=== PATIENT | female | born 1990 | race Caucasian/White ===

== ENCOUNTER 2016-12-18 15:08 | Emergency (ER) | payer SELFPAY ==
[~2016-12-18] VITALS: Ht 160 cm; Wt 81.6 kg
[2016-12-18 15:31] LABS: BILIRUBIN,URINE NEGATIVE (NEGATIVE); KETONES,URINE NEGATIVE (NEGATIVE); LEUKOCYTE ESTERASE ,URINE 1+ (NEGATIVE); NITRITE,URINE NEGATIVE (NEGATIVE); PH,URINE 6 (5-9); PROTEIN,URINE NEGATIVE (NEGATIVE); UROBILINOGEN,URINE NORMAL (NORMAL)
[2016-12-18 15:31] LABS: BASOPHILS % (AUTO) 1 % (0-10); EOSINOPHILS # (AUTO) 0.3 10^3/uL (0.0-0.3); EOSINOPHILS % (AUTO) 4 % (0-10); LYMPHOCYTES # (AUTO) 2.4 X 10^3 (1.0-4.0); LYMPHOCYTES % (AUTO) 35 % (12-44); MEAN CORPUSCULAR HEMOGLOBIN 31 PG (25-34); MEAN CORPUSCULAR HGB CONC 36 G/DL (32-36); MEAN CORPUSCULAR VOLUME 85 FL (80-99); MEAN PLATELET VOLUME 10.5 FL (7.4-10.4); MONOCYTES # (AUTO) 0.4 X 10^3 (0.0-1.0); MONOCYTES % (AUTO) 6 % (0-12); NEUTROPHILS # (AUTO) 3.9 X 10^3 (1.8-7.8); NEUTROPHILS % (AUTO) 55 % (42-75); PLATELET COUNT 217 10^3/uL (130-400); RED BLOOD COUNT 4.81 10^6/uL (4.35-5.85); RED CELL DISTRIBUTION WIDTH 12.9 % (10.0-14.5); WHITE BLOOD COUNT 7.1 10^3/uL (4.3-11.0)
[2016-12-18] MEDS ORDERED: GUAN2TAB12 PO (15:37)
[2016-12-18 15:40] LABS: WBC,URINE 0-2 /HPF
--- NOTE | 2016-12-18 15:44 | ED Abdominal Pain ---
General Chief Complaint: Abdominal/GI Problems Stated Complaint: NAUSEA, LEFT SIDED PAIN, DIZZINESS Nursing Triage Note: Pt. advises she has had severe left sided abdominal pain for several days that has become progressively worse. She advises she tried eating today but was unable to keep anything down. Sepsis Screen: No Definite Risk Source of Information: Patient Exam Limitations: No Limitations History of Present Illness Time Seen By Provider: 15:44 Initial Comments 26 yo female patient presents to the ED with c/o LLQ pain for approx 1 wk. Reports evening had a low grade fever. Patient states today she has felt nauseated and unable to keep anything down. States she has vomited x1 today. Denies diarrhea, vaginal bleeding, vaginal dsch, or fever. Timing/Duration: 1 Week, Intermittent Severity/Quality: Aching, Cramping Location: LLQ Radiation: Other (suprapubic) Activities at Onset: None Modifying Factors: Worsens With Eating, Worsens With Palpation Allergies and Home Medications Allergies Coded Allergies: shrimp (Unverified Allergy, Intermediate, 12/18/16) Penicillins (Verified Allergy, Unknown, 08/06/16) Home Medications Guanfacine HCl 2 Mg Tablet, 2 MG PO, (Reported) Hydrocodone/Acetaminophen 1 Each Tablet, 1 EACH PO Q4H PRN for PAIN, #20 Ref 0 Prescribed by: RICHARD PATEL on 12/18/16 1724 Ondansetron 8 Mg Tab.rapdis, 8 MG PO Q6H PRN for NAUSEA/VOMITING, #10 Ref 0 Prescribed by: RICHARD PATEL on 12/18/164 Review of Systems Constitutional: No chills, dizziness (with standing from a sitting or lying position patient reports she becomes dizzy.), No fever, No malaise EENTM: No Symptoms Reported Respiratory: No Symptoms Reported Cardiovascular: No Symptoms Reported Gastrointestinal: See HPI, Denies Abdomen Distended, Abdominal Pain, Denies Blood Streaked Stools, Denies Constipated, Denies Diarrhea, Nausea, Poor Appetite, Poor Fluid Intake, Denies Rectal Bleeding, Vomiting Genitourinary: Denies Burning, Denies Discharge, Denies Frequency, Denies Flank Pain, Denies Hematuria, Pain (suprapubic) Musculoskeletal: No back pain Skin: no symptoms reported Psychiatric/Neurological: No Symptoms Reported All Other Systems Reviewed Negative Unless Noted: Yes (Negative excepted noted.) Past Uabhdxx-Fameex-Tpwnev Hx Patient Social History Alcohol Use: Occasionally Uses Recreational Drug Use: Yes Drug of Choice: THC Type Used: Cigarettes Recent Foreign Travel: No Contact w/Someone Who Travel: No Recent Infectious Disease Expo: No Recent Hopitalizations: No Seasonal Allergies Seasonal Allergies: No Surgeries HX Surgeries: Yes (D&C) Surgeries: Section Respiratory Hx Respiratory Disorders: No Cardiovascular Hx Cardiac Disorders: No Neurological Hx Neurological Disorders: No Reproductive System Hx Reproductive Disorders: No Genitourinary Hx Genitourinary Disorders: No Gastrointestinal Hx Gastrointestinal Disorders: No Musculoskeletal Hx Musculoskeletal Disorders: No Endocrine Hx Endocrine Disorders: No HEENT HX ENT Disorders: No Cancer Hx Cancer: No Psychosocial Hx Psychiatric Problems: Yes Behavioral Health Disorders: Anxiety, Bipolar Integumentary HX Skin/Integumentary Disorder: No Blood Transfusions Hx Blood Disorders: No Reviewed Nursing Assessment Reviewed/Agree w Nursing PMH: Yes Family Medical History Significant Family History: No Pertinent Family Hx Physical Exam Vital Signs VS - Last 72 Hours, by Label 12/18/16 12/18/16 15:28 17:30 Temp 97.6 Pulse 78 86 Resp 14 14 B/P (MAP) 121/80 Pulse Ox 95 98 O2 Delivery Room Air Capillary Refill : Less Than 3 Seconds General Appearance: WD/WN, no apparent distress HEENT: PERRL/EOMI, pharynx normal Neck: supple, normal inspection Respiratory: lungs clear, normal breath sounds, no respiratory distress Cardiovascular: regular rate, rhythm, no murmur Gastrointestinal: normal bowel sounds, soft, no organomegaly, No distended, guarding (suprapubic), No rebound, tenderness (suprapubic) Extremities: no pedal edema, normal capillary refill Back: normal inspection, no CVA tenderness Neurologic/Psychiatric: alert, normal mood/affect, oriented x 3 Skin: normal color, warm/dry Progress/Results/Core Measures Results/Orders Lab Results Laboratory Tests Test 12/18/16 15:20 12/18/16 15:24 Range/Units Urine Color YELLOW Urine Clarity CLEAR Urine pH 6 5-9 Urine Specific [place] 1.010 L 1.016-1.022 Urine Protein NEGATIVE NEGATIVE Urine Glucose (UA) NEGATIVE NEGATIVE Urine Ketones NEGATIVE NEGATIVE Urine Nitrite NEGATIVE NEGATIVE Urine Bilirubin NEGATIVE NEGATIVE Urine Urobilinogen NORMAL NORMAL MG/DL Urine Leukocyte Esterase 1+ H NEGATIVE Urine RBC (Auto) NEGATIVE NEGATIVE Urine RBC NONE /HPF Urine WBC 0-2 /HPF Urine Squamous Epithelial Cells 10-25 H /HPF Urine Crystals NONE /LPF Urine Bacteria TRACE /HPF Urine Casts NONE /LPF Urine Mucus NEGATIVE /LPF Urine Culture Indicated NO Urine Test NEGATIVE NEGATIVE White Blood Count 7.1 4.3-11.0 10^3/uL Red Blood Count 4.81 4.35-5.85 10^6/uL Hemoglobin 14.7 11.5-16.0 G/DL Hematocrit 41 35-52 % Mean Corpuscular Volume 85 80-99 FL Mean Corpuscular Hemoglobin 31 25-34 PG Mean Corpuscular Hemoglobin Concent 36 32-36 G/DL Red Cell Distribution Width 12.9 10.0-14.5 % Platelet Count 217 130-400 10^3/uL Mean Platelet Volume 10.5 H 7.4-10.4 FL Neutrophils (%) (Auto) 55 42-75 % Lymphocytes (%) (Auto) 35 12-44 % Monocytes (%) (Auto) 6 0-12 % Eosinophils (%) (Auto) 4 0-10 % Basophils (%) (Auto) 1 0-10 % Neutrophils # (Auto) 3.9 1.8-7.8 X 10^3 Lymphocytes # (Auto) 2.4 1.0-4.0 X 10^3 Monocytes # (Auto) 0.4 0.0-1.0 X 10^3 Eosinophils # (Auto) 0.3 0.0-0.3 10^3/uL Basophils # (Auto) 0.0 0.0-0.1 10^3/uL Sodium Level 141 135-145 MMOL/L Potassium Level 3.6 3.6-5.0 MMOL/L Chloride Level 110 H 98-107 MMOL/L Carbon Dioxide Level 21 21-32 MMOL/L Anion Gap 10 5-14 MMOL/L Blood Urea Nitrogen 12 7-18 MG/DL Creatinine 0.81 0.60-1.30 MG/DL Estimat Glomerular Filtration Rate > 60 BUN/Creatinine Ratio 15 Glucose Level 93 70-105 MG/DL Calcium Level 9.6 8.5-10.1 MG/DL Total Bilirubin 0.5 0.1-1.0 MG/DL Aspartate Amino Transf (AST/SGOT) 14 5-34 U/L Alanine Aminotransferase (ALT/SGPT) 18 0-55 U/L Alkaline Phosphatase 69 40-136 U/L Total Protein 7.2 6.4-8.2 G/DL Albumin 4.5 3.2-4.5 G/DL Lipase 29 8-78 U/L My Orders Orders - RICHARD PATEL Cbc With Automated Diff (12/18/16 15:24) Comprehensive Metabolic Panel (12/18/16 15:24) Lipase (12/18/16 15:24) Ua Culture If Indicated (12/18/16 15:24) Saline Lock/Iv-Start (12/18/16 15:24) Ns Iv 1000 Ml (Sodium Chloride 0.9%) (12/18/16 16:05) Ondansetron Injection (Zofran Injectio (12/18/16 16:15) Ketorolac Injection (Toradol Injection) (12/18/16 16:05) Ct Abdomen/Pelvis W (12/18/16 16:05) Iohexol Injection (Omnipaque 350 Mg/Ml 1 (12/18/16 16:15) Ns (Ivpb) (Sodium Chloride 0.9% Ivpb Bag (12/18/16 16:15) Hcg,Qualitative Urine (12/18/16 16:11) Medications Given in ED Current Medications Medications Dose Ordered Sig/Katarzyna Route Start Time Stop Time Status Last Admin Dose Admin Iohexol 100 ml ONCE ONCE IV 12/18/16 16:15 12/18/16 16:16 DC 12/18/16 16:30 100 ML Ondansetron HCl 4 mg ONCE ONCE IVP 12/18/16 16:15 12/18/16 16:16 DC 12/18/16 16:14 4 MG Sodium Chloride 100 ml ONCE ONCE IV 12/18/16 16:15 12/18/16 16:16 DC 12/18/16 16:30 80 ML Sodium Chloride 1,000 ml @ 0 mls/hr Q0M ONCE IV 12/18/16 16:05 12/18/16 16:13 DC 12/18/16 16:14 0 MLS/HR Vital Signs/I&O Vital Sign - Last 12Hours 12/18/16 12/18/16 15:28 17:30 Temp 97.6 Pulse 78 86 Resp 14 14 B/P (MAP) 121/80 Pulse Ox 95 98 O2 Delivery Room Air Blood Pressure Mean: 94 Diagnostic Imaging Diagonstic Imaging: CT Plain Films/CT/US/NM/MRI: abdomen, pelvis Comments FINDINGS: Lung bases are clear. Liver appears normal. Gallbladder is contracted. Bile ducts are not dilated. Pancreas and spleen are normal. The adrenal glands are normal. The kidneys appear normal. There is normal enhancement of the aorta and abdominal vessels following IV contrast. Normal enhancement of the kidneys. Stomach and small bowel are not distended. The colon shows normal stool and gas pattern with no evidence of constipation. No evidence of diverticulitis. The appendix is not specifically identified though no appendicoliths or obvious dilated structures are seen in the right lower quadrant. Uterus appears normal. Ovaries are not enlarged. There is a hemorrhagic cyst which does enhance in the left ovary, measuring approximately 2 cm. There is a small amount of free fluid in the cul-de-sac. IMPRESSION: 1. Findings are consistent with ruptured hemorrhagic cyst in the left ovary with small amount of free fluid in the pelvis. 2. No evidence of diverticulitis. Kidneys appear normal. Dictated by: Dictated on workstation # [id number] Reviewed: Reviewed by Me (radiology report reviewed by me) Departure Communication Progress Notes lying vitals BP 123/74 mmHg P59 standing BP 113/79 P 85. All laboratory and diagnostic findings discussed with the patient. Patient reports feeling much better with IV fluids and medications. Denies current dizziness. Plan for discharge to home. All return precautions were discussed with the patient as described in the discharge instructions of this report. Patient voices understanding and agrees with treatment plan. Impression Impression: Primary Impression: Hemorrhagic cyst of ovary Disposition: HOME, SELF-CARE Condition: Improved Departure-Patient Inst. Decision time for Depature: 17:21 Referrals: NO,LOCAL PHYSICIAN (PCP/Family) Primary Care Physician Patient Instructions: Ovarian Cyst (DC) Add. Discharge Instructions: All discharge instructions reviewed with patient and/or family. Voiced understanding. Medications as instructed. Ibuprofen 800 mg by mouth every 8 hours as needed for pain. Drink plenty of fluids. Follow-up with your family practitioner for recheck as an outpatient, call for appointment time tomorrow morning. Return to the emergency department immediately for worsened pain, dizziness, headache, fever, vomiting, decreased urination, inability to urinate , or any other concerns. Scripts Ondansetron (Ondansetron Odt) 8 Mg Tab.rapdis 8 MG PO Q6H Y for NAUSEA/VOMITING, #10 TAB 0 Refills Prov: RIHCARD PATEL 12/18/16 Hydrocodone/Acetaminophen (Hydrocodon -Acetaminophen 5-325) 1 Each Tablet 1 EACH PO Q4H Y for PAIN, #20 TAB 0 Refills Prov: RICHARD PATEL 12/18/16 Work/School Note: Local Medical Staff Listing, Work Release Form Date Seen in the Emergency Department: Dec 18, 2016 Return to Work: Dec 20, 2016 RICHARD PATEL Dec 18, 2016 15:44
[2016-12-18 15:52] LABS: ALANINE AMINOTRANSFERASE 18 U/L (0-55); ALBUMIN 4.5 G/DL (3.2-4.5); ANION GAP 10 MMOL/L (5-14); ASPARTATE AMINO TRANSFERASE 14 U/L (5-34); BILIRUBIN,TOTAL 0.5 MG/DL (0.1-1.0); BLOOD UREA NITROGEN 12 MG/DL (7-18); BUN/CREATININE RATIO 15; CALCIUM 9.6 MG/DL (8.5-10.1); CARBON DIOXIDE 21 MMOL/L (21-32); CHLORIDE 110 MMOL/L (98-107); CREATININE SERUM 0.81 MG/DL (0.60-1.30); GFR ESTIMATED > 60; GLUCOSE 93 MG/DL (70-105); LIPASE 29 U/L (8-78); POTASSIUM 3.6 MMOL/L (3.6-5.0); SODIUM 141 MMOL/L (135-145); TOTAL PROTEIN 7.2 G/DL (6.4-8.2)
[2016-12-18] MEDS ORDERED: NS IV 1000 ML 1,000 ML IV ONE (16:05)
[2016-12-18] MEDS ORDERED: KETOROLAC 30 MG/ML VIAL IVP STA (16:05)
[2016-12-18] MEDS ORDERED: IOHEXOL 350 MG/ML 100 ML (OMNIPAQUE 350) VIAL IV ONE (16:15)
[2016-12-18] MEDS ORDERED: NS 100 ML (IVPB) BAG IV ONE (16:15)
[2016-12-18] MEDS ORDERED: ONDANSETRON 4 MG/2 ML (SDV) Z0FRAN IVP ONE (16:15)
--- NOTE | 2016-12-18 16:52 | Diagnostic Imaging Report ---
PROCEDURE: CT abdomen and pelvis with contrast. TECHNIQUE: Multiple contiguous axial images were obtained through the abdomen and pelvis after administration of intravenous contrast. INDICATION: Left-sided abdominal pain with nausea x 1 week. FINDINGS: Lung bases are clear. Liver appears normal. Gallbladder is contracted. Bile ducts are not dilated. Pancreas and spleen are normal. The adrenal glands are normal. The kidneys appear normal. There is normal enhancement of the aorta and abdominal vessels following IV contrast. Normal enhancement of the kidneys. Stomach and small bowel are not distended. The colon shows normal stool and gas pattern with no evidence of constipation. No evidence of diverticulitis. The appendix is not specifically identified though no appendicoliths or obvious dilated structures are seen in the right lower quadrant. Uterus appears normal. Ovaries are not enlarged. There is a hemorrhagic cyst which does enhance in the left ovary, measuring approximately 2 cm. There is a small amount of free fluid in the cul-de-sac. IMPRESSION: 1. Findings are consistent with ruptured hemorrhagic cyst in the left ovary with small amount of free fluid in the pelvis. 2. No evidence of diverticulitis. Kidneys appear normal. Dictated by: Dictated on workstation # [id number]
[2016-12-18] MEDS ORDERED: ONDA8TAB13 PO (17:24)
[2016-12-18] MEDS ORDERED: HYDR-3812 PO (17:24)
[2016-12-18 17:30] VITALS: BP 120/77
== END 2016-12-18 17:31 | disposition home or self-care (01) ==
LOC: EDUNIT# 15:08 → ER 15:11
DX: N83.202 Unspecified ovarian cyst, left side (principal)
CPT/HCPCS: 36415; 74177; 80053; 81000; 83690; 84703; 85025; 96374; 96375

== ENCOUNTER 2017-01-06 15:26 | Emergency (ER) | payer SELFPAY ==
[~2017-01-06] VITALS: Ht 160 cm; Wt 52.2 kg
[~2017-01-06 15:26] MED LIST: GUAN2TAB12 PO; HYDR-3812 PO; ONDA8TAB13 PO
--- NOTE | 2017-01-06 16:16 | ED Integumentary General ---
General Chief Complaint: Bite-Animal/Human/Insect Stated Complaint: POSSIBLE INSECT BITE RT ARM Nursing Triage Note: AMB TO ROOM RED SHAKA TO R FA. Source: patient Exam Limitations: no limitations History of Present Illness Time seen by provider: 16:10 Initial Comments The patient is a 26-year-old white female who presents with what appears to be a bite on the ulnar aspect of her right arm at the elbow. She believes that this began yesterday. It has enlarged and is now itchy. There is another smaller more indurated red area on the dorsal aspect of the forearm adjacent to the first lesion and a third of similar bright red indurated character at the MP joint of the second finger. [place] but is not particularly exposed to grass weeds or brush. Timing/Duration: yesterday Location: extremities (right arm) Possible Cause: insect sting Allergies and Home Medications Allergies Coded Allergies: shrimp (Unverified Allergy, Intermediate, 12/18/16) Penicillins (Verified Allergy, Unknown, 08/06/16) Home Medications Guanfacine HCl 2 Mg Tablet, 2 MG PO, (Reported) Hydrocodone/Acetaminophen 1 Each Tablet, 1 EACH PO Q4H PRN for PAIN, #20 Ref 0 Prescribed by: RICHARD PATEL on 12/18/16 1724 Ondansetron 8 Mg Tab.rapdis, 8 MG PO Q6H PRN for NAUSEA/VOMITING, #10 Ref 0 Prescribed by: RICHARD PATEL on 12/18/16 1724 Constitutional: see HPI EENTM: no symptoms reported Respiratory: no symptoms reported Cardiovascular: no symptoms reported Gastrointestinal: no symptoms reported Genitourinary: no symptoms reported Skin: see HPI Psychiatric/Neurological: No Symptoms Reported Endocrine: No Symptoms Reported Past Jbirsoj-Rkidew-Agdfew Hx Patient Social History Alcohol Use: Occasionally Uses Recreational Drug Use: Yes Drug of Choice: THC Smoking Status: Never a Smoker Type Used: Cigarettes Recent Foreign Travel: No Contact w/Someone Who Travel: No Recent Infectious Disease Expo: No Recent Hopitalizations: No Seasonal Allergies Seasonal Allergies: No Surgeries HX Surgeries: Yes (D&C) Surgeries: Section Respiratory Hx Respiratory Disorders: No Cardiovascular Hx Cardiac Disorders: No Neurological Hx Neurological Disorders: No Reproductive System Hx Reproductive Disorders: No Genitourinary Hx Genitourinary Disorders: No Gastrointestinal Hx Gastrointestinal Disorders: No Musculoskeletal Hx Musculoskeletal Disorders: No Endocrine Hx Endocrine Disorders: No HEENT HX ENT Disorders: No Cancer Hx Cancer: No Psychosocial Hx Psychiatric Problems: Yes Behavioral Health Disorders: Anxiety, Bipolar Integumentary HX Skin/Integumentary Disorder: No Blood Transfusions Hx Blood Disorders: No Family Medical History Significant Family History: No Pertinent Family Hx Physical Exam Vital Signs Vital Sign - Last 12Hours 01/06/17 15:31 Temp 98.3 Pulse 88 Resp 18 B/P (MAP) 110/65 Pulse Ox 97 O2 Delivery Room Air Capillary Refill : Less Than 3 Seconds General Appearance: WD/WN, no apparent distress HEENT: normal ENT inspection Neck: full range of motion Cardiovascular: normal peripheral pulses, regular rate, rhythm, no edema, no gallop, no JVD, no murmur Respiratory: chest non-tender, lungs clear, normal breath sounds, no respiratory distress, no accessory muscle use Gastrointestinal: normal bowel sounds, non tender, soft, no organomegaly, no pulsatile mass Back: normal inspection Extremities: normal range of motion Comments There is an erythematous 5 cm symmetric round lesion on the ulnar aspect of the forearm at the elbow. In the center is a small papule consistent with an insect bite or sting. There is a small raised red indurated lesion adjacent to this and more on the dorsal aspect of the of the forearm. A similar lesion is noted on the dorsal aspect of the hand near the second MP joint Progress/Results/Core Measures Results/Orders Vital Signs/I&O Vital Sign - Last 12Hours 01/06/17 15:31 Temp 98.3 Pulse 88 Resp 18 B/P (MAP) 110/65 Pulse Ox 97 O2 Delivery Room Air Blood Pressure Mean: 80 Departure Impression Impression: Primary Impression: insect bite Disposition: 01 HOME, SELF-CARE Departure-Patient Inst. Decision time for Depature: 16:16 Referrals: [facility] (PCP/Family) Primary Care Physician Patient Instructions: Insect Bites and Stings (DC) Add. Discharge Instructions: All discharge instructions reviewed with patient and/or family. Voiced understanding. Acquire Benadryl 25 mg his at up to every 4 hours as needed for itching. Apply Cortizone 10 which is available [id number]-sya-[id number] directly to the lesions every 4 -6 hours when necessary JEREMI DRISCOLL MD Jan 06, 2017 16:16
[2017-01-06 16:28] VITALS: BP 0/0
== END 2017-01-06 16:28 | disposition home or self-care (01) ==
LOC: EDUNIT# 15:26 → ER 15:27
DX: S50.361A Insect bite (nonvenomous) of right elbow, initial encounter (principal); S50.861A Insect bite (nonvenomous) of right forearm, initial encounter; W57.XXXA Bitten or stung by nonvenomous insect and other nonvenomous arthropods, initial encounter; Y99.8 Other external cause status
CPT/HCPCS: 99283

== ENCOUNTER 2017-04-14 17:35 | Emergency (ER) | payer SELFPAY ==
[~2017-04-14] VITALS: Ht 160 cm; Wt 54.9 kg
--- NOTE | 2017-04-14 18:13 | ED Psychosocial ---
General Chief Complaint: Psych/Social Disorder Stated Complaint: SUICIDAL Nursing Triage Note: PT WAS SENT HERE FROM [facility] WITH THOUGHTS OF KILLING HERSELF. PT HAS A HISTORY OF SELF HARM AND IS SCARED TO BE ALONE. Source: patient Exam Limitations: no limitations History of Present Illness Time seen by provider: 18:10 Initial Comments To ER with reports of suicidal thoughts. This began about a week ago. She does not recall any one particular stressor that led to this. She states that she was started on Lamictal for bipolar depression with anxiety on 25 March. She is not on any other medications. She does binge drink on the weekends and occasionally uses marijuana to help her relax. She does not have a current plan for suicide but states that she does not trust herself to be safe at home. She does have a history of suicide attempt last year about this time while she was living in [place]. She drank a liter of vodka and took 40 Tylenol. She has had no attempts since then. She does have a boyfriend here in [place] states that that relationship is not a stable relationship and may be a factor in her worsening depression. She would prefer inpatient treatment. Timing/Duration: constant Associated Symptoms: suicidal ideation Allergies and Home Medications Allergies Coded Allergies: shrimp (Unverified Allergy, Intermediate, 12/18/16) Penicillins (Verified Allergy, Unknown, 08/06/16) Home Medications Guanfacine HCl 2 Mg Tablet, 2 MG PO, (Reported) Hydrocodone/Acetaminophen 1 Each Tablet, 1 EACH PO Q4H PRN for PAIN, #20 Ref 0 Prescribed by: RICHARD PATEL on 12/18/161723 Ondansetron 8 Mg Tab.rapdis, 8 MG PO Q6H PRN for NAUSEA/VOMITING, #10 Ref 0 Prescribed by: RICHARD PATEL on 12/18/16 1724 Constitutional: see HPI EENTM: see HPI Respiratory: no symptoms reported Cardiovascular: no symptoms reported Genitourinary: no symptoms reported Musculoskeletal: no symptoms reported Skin: no symptoms reported Psychiatric/Neurological: See HPI, Anxiety, Depressed, Emotional Problems Past Shclhbi-Tkktvr-Mmvwih Hx Patient Social History Drug of Choice: THC Type Used: Cigarettes Recent Foreign Travel: No Contact w/Someone Who Travel: No Recent Infectious Disease Expo: No Recent Hopitalizations: No Seasonal Allergies Seasonal Allergies: No Surgeries HX Surgeries: Yes (D&C) Surgeries: Section Respiratory Hx Respiratory Disorders: No Cardiovascular Hx Cardiac Disorders: No Neurological Hx Neurological Disorders: No Reproductive System : No Hx Reproductive Disorders: No Genitourinary Hx Genitourinary Disorders: No Gastrointestinal Hx Gastrointestinal Disorders: No Musculoskeletal Hx Musculoskeletal Disorders: No Endocrine Hx Endocrine Disorders: No HEENT HX ENT Disorders: No Cancer Hx Cancer: No Psychosocial Hx Psychiatric Problems: Yes Behavioral Health Disorders: Anxiety, Bipolar Integumentary HX Skin/Integumentary Disorder: No Blood Transfusions Hx Blood Disorders: No Family Medical History Significant Family History: No Pertinent Family Hx Physical Exam Vital Signs Vital Sign - Last 12Hours 04/14/17 17:44 Temp 98.7 Pulse 77 Resp 18 B/P (MAP) 111/61 Pulse Ox 96 O2 Delivery Room Air Capillary Refill : Less Than 3 Seconds General Appearance: WD/WN, no apparent distress HEENT: PERRL/EOMI, normal ENT inspection Respiratory: no respiratory distress, no accessory muscle use Cardiovascular: regular rate, rhythm, no murmur Gastrointestinal: normal bowel sounds, non tender, soft Extremities: normal range of motion, non-tender Neurologic/Psychiatric: alert, normal mood/affect, oriented x 3 Appearance/Memory: appropriate appearance, appropriate insight, neat Behavior/Eye Contact: cooperative, good eye contact, avoids eye contact, other (very pleasant but avoids eye contact) Thoughts/Hallucinations: normal thought pattern, no apparent hallucination Skin: normal color, warm/dry Progress/Results/Core Measures Results/Orders Lab Results Laboratory Tests Test 04/14/17 18:31 04/14/17 18:39 Range/Units White Blood Count 7.9 4.3-11.0 10^3/uL Red Blood Count 4.66 4.35-5.85 10^6/uL Hemoglobin 14.3 11.5-16.0 G/DL Hematocrit 41 35-52 % Mean Corpuscular Volume 87 80-99 FL Mean Corpuscular Hemoglobin 31 25-34 PG Mean Corpuscular Hemoglobin Concent 35 32-36 G/DL Red Cell Distribution Width 12.7 10.0-14.5 % Platelet Count 194 130-400 10^3/uL Mean Platelet Volume 10.4 7.4-10.4 FL Neutrophils (%) (Auto) 64 42-75 % Lymphocytes (%) (Auto) 27 12-44 % Monocytes (%) (Auto) 5 0-12 % Eosinophils (%) (Auto) 3 0-10 % Basophils (%) (Auto) 1 0-10 % Neutrophils # (Auto) 5.1 1.8-7.8 X 10^3 Lymphocytes # (Auto) 2.1 1.0-4.0 X 10^3 Monocytes # (Auto) 0.4 0.0-1.0 X 10^3 Eosinophils # (Auto) 0.3 0.0-0.3 10^3/uL Basophils # (Auto) 0.0 0.0-0.1 10^3/uL Sodium Level 139 135-145 MMOL/L Potassium Level 3.8 3.6-5.0 MMOL/L Chloride Level 110 H 98-107 MMOL/L Carbon Dioxide Level 20 L 21-32 MMOL/L Anion Gap 9 5-14 MMOL/L Blood Urea Nitrogen 12 7-18 MG/DL Creatinine 0.78 0.60-1.30 MG/DL Estimat Glomerular Filtration Rate > 60 BUN/Creatinine Ratio 15 Glucose Level 99 70-105 MG/DL Calcium Level 9.7 8.5-10.1 MG/DL Total Bilirubin 0.7 0.1-1.0 MG/DL Aspartate Amino Transf (AST/SGOT) 9 5-34 U/L Alanine Aminotransferase (ALT/SGPT) 11 0-55 U/L Alkaline Phosphatase 56 40-136 U/L Total Protein 7.2 6.4-8.2 GM/DL Albumin 4.4 3.2-4.5 GM/DL Serum Test, Qualitative NEGATIVE NEGATIVE Salicylates Level < 5.0 L 5.0-20.0 MG/DL Acetaminophen Level < 10 L 10-30 UG/ML Serum Alcohol < 10 <10 MG/DL Urine Opiates Screen NEGATIVE NEGATIVE Urine Oxycodone Screen NEGATIVE NEGATIVE Urine Methadone Screen NEGATIVE NEGATIVE Urine Propoxyphene Screen NEGATIVE NEGATIVE Urine Barbiturates Screen NEGATIVE NEGATIVE Ur Tricyclic Antidepressants Screen NEGATIVE NEGATIVE Urine Phencyclidine Screen NEGATIVE NEGATIVE Urine Amphetamines Screen NEGATIVE NEGATIVE Urine Methamphetamines Screen NEGATIVE NEGATIVE Urine Benzodiazepines Screen NEGATIVE NEGATIVE Urine Cocaine Screen NEGATIVE NEGATIVE Urine Cannabinoids Screen NEGATIVE NEGATIVE My Orders Orders - SANDRA ZEPEDA INFORMATION RESOURCE CONSULTANT Cbc With Automated Diff (04/14/17 17:50) Comprehensive Metabolic Panel (04/14/17 17:50) Urine Bedside (04/14/17 17:50) Drug Screen Stat (Urine) (04/14/17 17:50) Salicylate (04/14/17 17:50) Acetaminophen (04/14/17 17:50) Alcohol (04/14/17 17:50) Hcg,Qualitative Serum (04/14/17 17:50) Ekg Tracing (04/14/17 17:50) Vital Signs/I&O Vital Sign - Last 12Hours 04/14/17 17:44 Temp 98.7 Pulse 77 Resp 18 B/P (MAP) 111/61 Pulse Ox 96 O2 Delivery Room Air Blood Pressure Mean: 78 Departure Communication Progress Notes 1939-I've attempted to find inpatient psychiatric placement for the patient. [facility] in [place] does not have any beds. [facility] in [facility] does not have any beds. [facility] in [facility] does not have any beds. [facility] in [place] does not have any beds. Dr. Goodman at [facility] accepted the patient. Tracing all secure psych transport will be here Impression Impression: Primary Impression: Depression Disposition: 01 HOME, SELF-CARE Condition: Stable Departure-Patient Inst. Referrals: [facility] [place]) Primary Care Physician SANDRA ZEPEDA APRN Apr 14, 2017 18:13
[2017-04-14 18:47] LABS: BASOPHILS % (AUTO) 1 % (0-10); EOSINOPHILS # (AUTO) 0.3 10^3/uL (0.0-0.3); EOSINOPHILS % (AUTO) 3 % (0-10); LYMPHOCYTES # (AUTO) 2.1 X 10^3 (1.0-4.0); LYMPHOCYTES % (AUTO) 27 % (12-44); MEAN CORPUSCULAR HEMOGLOBIN 31 PG (25-34); MEAN CORPUSCULAR HGB CONC 35 G/DL (32-36); MEAN CORPUSCULAR VOLUME 87 FL (80-99); MEAN PLATELET VOLUME 10.4 FL (7.4-10.4); MONOCYTES # (AUTO) 0.4 X 10^3 (0.0-1.0); MONOCYTES % (AUTO) 5 % (0-12); NEUTROPHILS # (AUTO) 5.1 X 10^3 (1.8-7.8); NEUTROPHILS % (AUTO) 64 % (42-75); PLATELET COUNT 194 10^3/uL (130-400); RED BLOOD COUNT 4.66 10^6/uL (4.35-5.85); RED CELL DISTRIBUTION WIDTH 12.7 % (10.0-14.5); WHITE BLOOD COUNT 7.9 10^3/uL (4.3-11.0)
[2017-04-14 19:00] LABS: ALANINE AMINOTRANSFERASE 11 U/L (0-55); ALBUMIN 4.4 GM/DL (3.2-4.5); ALCOHOL < 10 MG/DL (<10); ANION GAP 9 MMOL/L (5-14); ASPARTATE AMINO TRANSFERASE 9 U/L (5-34); BILIRUBIN,TOTAL 0.7 MG/DL (0.1-1.0); BLOOD UREA NITROGEN 12 MG/DL (7-18); BUN/CREATININE RATIO 15; CALCIUM 9.7 MG/DL (8.5-10.1); CARBON DIOXIDE 20 MMOL/L (21-32); CHLORIDE 110 MMOL/L (98-107); CREATININE SERUM 0.78 MG/DL (0.60-1.30); GFR ESTIMATED > 60; GLUCOSE 99 MG/DL (70-105); POTASSIUM 3.8 MMOL/L (3.6-5.0); SALICYLATE < 5.0 MG/DL (5.0-20.0); SODIUM 139 MMOL/L (135-145); TOTAL PROTEIN 7.2 GM/DL (6.4-8.2)
[2017-04-14 19:03] LABS: ACETAMINOPHEN < 10 UG/ML (10-30)
[2017-04-14 21:28] VITALS: BP 103/59
== END 2017-04-14 21:28 ==
LOC: EDUNIT# 17:35 → ER 17:37
DX: F32.9 Major depressive disorder, single episode, unspecified (principal); F41.9 Anxiety disorder, unspecified
CPT/HCPCS: 36415; 80053; 80306; 80320; 80329; 84703; 85025; 93005

== ENCOUNTER 2017-07-15 21:32 | Emergency (ER) | payer SELFPAY ==
[~2017-07-15] VITALS: Ht 160 cm; Wt 68.0 kg
[2017-07-15 22:20] LABS: BILIRUBIN,URINE NEGATIVE (NEGATIVE); KETONES,URINE NEGATIVE (NEGATIVE); LEUKOCYTE ESTERASE ,URINE NEGATIVE (NEGATIVE); NITRITE,URINE NEGATIVE (NEGATIVE); PH,URINE 6 (5-9); PROTEIN,URINE NEGATIVE (NEGATIVE); UROBILINOGEN,URINE NORMAL (NORMAL)
[2017-07-15 22:23] LABS: BASOPHILS % (AUTO) 0 % (0-10); EOSINOPHILS # (AUTO) 0.2 10^3/uL (0.0-0.3); EOSINOPHILS % (AUTO) 3 % (0-10); LYMPHOCYTES # (AUTO) 1.9 X 10^3 (1.0-4.0); LYMPHOCYTES % (AUTO) 39 % (12-44); MEAN CORPUSCULAR HEMOGLOBIN 30 PG (25-34); MEAN CORPUSCULAR HGB CONC 35 G/DL (32-36); MEAN CORPUSCULAR VOLUME 85 FL (80-99); MONOCYTES # (AUTO) 0.3 X 10^3 (0.0-1.0); MONOCYTES % (AUTO) 6 % (0-12); NEUTROPHILS # (AUTO) 2.4 X 10^3 (1.8-7.8); NEUTROPHILS % (AUTO) 51 % (42-75); PLATELET COUNT 223 10^3/uL (130-400); RED BLOOD COUNT 4.53 10^6/uL (4.35-5.85); RED CELL DISTRIBUTION WIDTH 12.6 % (10.0-14.5); WHITE BLOOD COUNT 4.7 10^3/uL (4.3-11.0)
[2017-07-15 22:28] LABS: SQUAMOUS EPITHELIAL CELL,UR 0-2 /HPF
[2017-07-15 22:44] LABS: ALANINE AMINOTRANSFERASE 15 U/L (0-55); ALCOHOL 60 MG/DL (<10); ANION GAP 10 MMOL/L (5-14); ASPARTATE AMINO TRANSFERASE 11 U/L (5-34); BILIRUBIN,TOTAL 0.3 MG/DL (0.1-1.0); BLOOD UREA NITROGEN 8 MG/DL (7-18); BUN/CREATININE RATIO 9; CALCIUM 9.2 MG/DL (8.5-10.1); CARBON DIOXIDE 20 MMOL/L (21-32); CHLORIDE 111 MMOL/L (98-107); CREATININE SERUM 0.85 MG/DL (0.60-1.30); GFR ESTIMATED > 60; GLUCOSE 94 MG/DL (70-105); POTASSIUM 3.3 MMOL/L (3.6-5.0); SALICYLATE < 5.0 MG/DL (5.0-20.0); SODIUM 141 MMOL/L (135-145); TOTAL PROTEIN 6.9 GM/DL (6.4-8.2)
[2017-07-15 23:12] LABS: ACETAMINOPHEN < 10 UG/ML (10-30)
--- NOTE | 2017-07-15 23:49 | ED General ---
General Chief Complaint: Psych/Social Disorder Stated Complaint: SUICIDAL Nursing Triage Note: patient reports has been drinking and got into argument with boyfriend. patient reports trying to harm herself by cutting her RFA. Nursing Sepsis Screen: No Definite Risk Source of Information: Patient History of Present Illness Time Seen by Provider: 22:00 Initial Comments PT ARRIVES VIA EMS FROM HOME PT STATES SHE IS SUICIDAL AND TRIED TO HARM HERSELF BY CUTTING HER RIGHT FOREARM WITH A RAZOR JUST PRIOR TO ARRIVAL PT STATES SHE GOT INTO AN ARGUMENT WITH HER BOYFRIEND--STATES "I TRIED TO TELL HIM SOMETHING AND HE DIDN'T BELIEVE ME" SO SHE TRIED TO CUT HER ARM, AND WAS WITNESSED BY BOYFRIEND, WHO CALLED EMS PT STATES SHE HAS HAD 25 OZ OF BEER PLUS 4 "SHOTS" ( "MINI BOTTLES") OF RUM AND VODKA--HAS NOT HAD ANY ALCOHOL FOR OVER A MONTH PT STATES SHE AND BOYFRIEND MOVED HERE 05/2016 FROM [place], BUT HAVE BEEN BACK AND FORTH BETWEEN HERE AN [place] EVERY 1-2 MONTHS SINCE THEN--JUST GOT BACK AGAIN FROM THERE ON Tuesday07/10/17, AFTER BEING THERE SINCE PT HAS HISTORY OF OVERDOSE ON TYLENOL + VODKA + CUT HERSELF WHILE IN [place] LAST 2015 PT DID THE SAME THIS PAST SUMMER----AND WAS HOSPITALIZED AT [facility] PT HAS NOT FOLLOWED UP WITH MENTAL HEALTH SINCE THAT TIME, EXCEPT POSSIBLY ONE VISIT RIGHT AFTER SHE WAS DISMISSED PT SELF DC'D ALL OF HER MEDICATIONS IN APRIL--WAS ON LITHIUM AND STRATTERA PT STATES SHE HAD TETANUS VACCINATION IN 2015 IN [place] PSYCH--[facility] PT STATES SHE DOES NOT REALLY SEE ANY ONE FOR PRIMARY CARE Allergies and Home Medications Allergies Coded Allergies: shrimp (Unverified Allergy, Intermediate, 12/18/16) Penicillins (Verified Allergy, Unknown, 08/06/16) Home Medications Guanfacine HCl 2 Mg Tablet, 2 MG PO, (Reported) Hydrocodone/Acetaminophen 1 Each Tablet, 1 EACH PO Q4H PRN for PAIN, #20 Ref 0 Prescribed by: RICHARD PATEL on 12/18/161723 Ondansetron 8 Mg Tab.rapdis, 8 MG PO Q6H PRN for NAUSEA/VOMITING, #10 Ref 0 Prescribed by: RICHARD PATEL on 3/25/17 1724 Constitutional: no symptoms reported EENTM: no symptoms reported Respiratory: no symptoms reported Cardiovascular: no symptoms reported Gastrointestinal: no symptoms reported Genitourinary: no symptoms reported : No LMP: Jul 13, 2017 (S/P BTL) Musculoskeletal: no symptoms reported Skin: see HPI Psychiatric/Neurological: See HPI, Depressed, Emotional Problems Hematologic/Lymphatic: No Symptoms Reported Immunological/Allergic: no symptoms reported Past Xnfufck-Bvqbuw-Pxlhov Hx Patient Social History Alcohol Use: Occasionally Uses (HISTORY OF ABUSE/ HEAVY USE, NOW ONLY "OCCASIONALLY" DRINKS, PER PT ON 07/15/17) Recreational Drug Use: Yes Drug of Choice: THC Smoking Status: Never a Smoker Recent Foreign Travel: No Contact w/Someone Who Travel: No Recent Infectious Disease Expo: No Recent Hopitalizations: No Physical Abuse: No Sexual Abuse: No Immunizations Up To Date Tetanus Booster (TDap): Less than 5yrs (2016) Seasonal Allergies Seasonal Allergies: No Surgeries History of Surgeries: Yes (D&C X 2 FOR MISCARRIAGE; X 3) Surgeries: Section, Tubal Ligation Respiratory History of Respiratory Disorde: No Cardiovascular History of Cardiac Disorders: No Neurological History of Neurological Disord: No Reproductive System : No Hx Reproductive Disorders: No Female Reproductive Disorders: Denies Genitourinary History of Genitourinary Disor: No Gastrointestinal History of Gastrointestinal Di: No Musculoskeletal History of Musculoskeletal Dis: No Endocrine History of Endocrine Disorders: No HEENT History of HEENT Disorders: No Cancer History of Cancer: No Psychosocial History of Psychiatric Problem: Yes (OVERDOSED WITH PILLS AND ALCOHOL, CUT FOREARMS) Behavioral Health Disorders: Suicide Attempts, Bipolar, Depression Suicide Risk Score: 0 Integumentary History of Skin or Integumenta: No Blood Transfusions History of Blood Disorders: No Family Medical History Significant Family History: No Pertinent Family Hx Physical Exam Vital Signs Vital Sign - Last 12Hours 07/15/17 21:42 Temp 98.4 Pulse 84 Resp 18 B/P (MAP) 133/82 Pulse Ox 97 Capillary Refill : Less Than 3 Seconds General Appearance: No Apparent Distress, WD/WN, Other (HAIR CUT VERY SHORT; VERY FLAT AFFECT; DOES NOT MAKE EYE CONTACT) Neck: Normal Inspection Respiratory: Normal Breath Sounds Cardiovascular: Regular Rate, Rhythm, No Murmur Gastrointestinal: Soft Back: Normal Inspection Extremity: Normal Inspection Neurologic/Psychiatric: Alert, Oriented x3, No Motor/Sensory Deficits, hydraulic mechanic II- XII Norm as Tested, Depressed Affect, Other (FLAT) Skin: Normal Color, Warm/Dry, Other (SUPERFICIAL / PARALLEL WIDE ABRASIONS TO ANTERIOR ASPECT OF RIGHT FOREARM--NO BLEEDING. ) Progress/Results/Core Measures Results/Orders Lab Results Laboratory Tests Test 07/15/17 21:35 07/15/17 22:17 Range/Units Urine Color YELLOW Urine Clarity CLEAR Urine pH 6 5-9 Urine Specific [place] 1.005 L 1.016-1.022 Urine Protein NEGATIVE NEGATIVE Urine Glucose (UA) NEGATIVE NEGATIVE Urine Ketones NEGATIVE NEGATIVE Urine Nitrite NEGATIVE NEGATIVE Urine Bilirubin NEGATIVE NEGATIVE Urine Urobilinogen NORMAL NORMAL MG/DL Urine Leukocyte Esterase NEGATIVE NEGATIVE Urine RBC (Auto) NEGATIVE NEGATIVE Urine RBC NONE /HPF Urine WBC NONE /HPF Urine Squamous Epithelial Cells 0-2 /HPF Urine Crystals NONE /LPF Urine Bacteria NONE /HPF Urine Casts NONE /LPF Urine Mucus NEGATIVE /LPF Urine Culture Indicated NO Urine Opiates Screen NEGATIVE NEGATIVE Urine Oxycodone Screen NEGATIVE NEGATIVE Urine Methadone Screen NEGATIVE NEGATIVE Urine Propoxyphene Screen NEGATIVE NEGATIVE Urine Barbiturates Screen NEGATIVE NEGATIVE Ur Tricyclic Antidepressants Screen NEGATIVE NEGATIVE Urine Phencyclidine Screen NEGATIVE NEGATIVE Urine Amphetamines Screen NEGATIVE NEGATIVE Urine Methamphetamines Screen NEGATIVE NEGATIVE Urine Benzodiazepines Screen NEGATIVE NEGATIVE Urine Cocaine Screen NEGATIVE NEGATIVE Urine Cannabinoids Screen NEGATIVE NEGATIVE White Blood Count 4.7 4.3-11.0 10^3/uL Red Blood Count 4.53 4.35-5.85 10^6/uL Hemoglobin 13.7 11.5-16.0 G/DL Hematocrit 39 35-52 % Mean Corpuscular Volume 85 80-99 FL Mean Corpuscular Hemoglobin 30 25-34 PG Mean Corpuscular Hemoglobin Concent 35 32-36 G/DL Red Cell Distribution Width 12.6 10.0-14.5 % Platelet Count 223 130-400 10^3/uL Mean Platelet Volume 10.0 7.4-10.4 FL Neutrophils (%) (Auto) 51 42-75 % Lymphocytes (%) (Auto) 39 12-44 % Monocytes (%) (Auto) 6 0-12 % Eosinophils (%) (Auto) 3 0-10 % Basophils (%) (Auto) 0 0-10 % Neutrophils # (Auto) 2.4 1.8-7.8 X 10^3 Lymphocytes # (Auto) 1.9 1.0-4.0 X 10^3 Monocytes # (Auto) 0.3 0.0-1.0 X 10^3 Eosinophils # (Auto) 0.2 0.0-0.3 10^3/uL Basophils # (Auto) 0.0 0.0-0.1 10^3/uL Sodium Level 141 135-145 MMOL/L Potassium Level 3.3 L 3.6-5.0 MMOL/L Chloride Level 111 H 98-107 MMOL/L Carbon Dioxide Level 20 L 21-32 MMOL/L Anion Gap 10 5-14 MMOL/L Blood Urea Nitrogen 8 7-18 MG/DL Creatinine 0.85 0.60-1.30 MG/DL Estimat Glomerular Filtration Rate > 60 BUN/Creatinine Ratio 9 Glucose Level 94 70-105 MG/DL Calcium Level 9.2 8.5-10.1 MG/DL Total Bilirubin 0.3 0.1-1.0 MG/DL Aspartate Amino Transf (AST/SGOT) 11 5-34 U/L Alanine Aminotransferase (ALT/SGPT) 15 0-55 U/L Alkaline Phosphatase 61 40-136 U/L Total Protein 6.9 6.4-8.2 GM/DL Albumin 4.0 3.2-4.5 GM/DL TSH [facility] Testing 1.60 0.35-4.94 UIU/ML Serum Test, Qualitative NEGATIVE NEGATIVE Salicylates Level < 5.0 L 5.0-20.0 MG/DL Acetaminophen Level < 10 L 10-30 UG/ML Serum Alcohol 60 H <10 MG/DL My Orders Orders - EMMIE BRIZUELA DO Ua Culture If Indicated (07/15/17 22:12) Thyroid Analyzer (07/15/17 22:12) Drug Screen Stat (Urine) (07/15/17 22:12) Cbc With Automated Diff (07/15/17 22:12) Comprehensive Metabolic Panel (07/15/17 22:12) Alcohol (07/15/17 22:12) Acetaminophen (07/15/17 22:12) Salicylate (07/15/17 22:12) Ekg Tracing (07/15/17 22:12) Hcg,Qualitative Serum (07/15/17 22:12) Wound Dressing-Ed (07/15/17 22:35) Mupirocin Ointment (Bactroban Ointment (07/16/17 09:00) Vital Signs/I&O Vital Sign - Last 12Hours 07/15/17 21:42 Temp 98.4 Pulse 84 Resp 18 B/P (MAP) 133/82 Pulse Ox 97 Blood Pressure Mean: 99 ECG Initial ECG Impression Time: 23:02 Initial ECG Rate: 60 Initial ECG Rhythm: Normal Sinus Initial ECG Impression: Normal Initial ECG Comparisson: No Previous ECG Available Departure Communication (Admissions) Progress Notes [id number]--CALLED [facility] 230--[facility] CALLED BACK. SCREENER WILL BE OUT TO SEE PT [id number]--SCREENER HERE TO SEE PT. [id number]--LIZANDRO, FROM [facility] HAS TALKED WITH PT, SHE HAS ARRANGED FOR A SAFETY PLAN--SOMEONE WILL BE CHECKING ON HER MULTIPLE TIMES OVER THE WEEKEND, INCLUDING CRISIS SECURITIES ATTORNEY AND HERSELF; SHE HAS TALKED WITH BOYFRIEND, AND HE WILL BE WITH PT ALL WEEKEND, AND SHE HAS ADVISED PT TO CALL [facility] OR HERSELF IF SHE BEGINS HAVING THOUGHTS OF HARMING HERSELF AGAIN. SHE STATES NOW THAT SHE DOESN'T REALLY WANT TO KILL HERSELF, JUST WANTED TO "CUT " BOYFRIEND WAS CONTACTED TO COME TO PICK PT UP AND TAKE HER HOME, BUT HE IS UNABLE TO-- HE IS INTOXICATED. THEREFORE, HE CANNOT OBSERVE PT [facility]. LIZANDRO IS NOW TRYING TO ARRANGE FOR OTHER SAFETY PLAN. LIZANDRO HAS ATTEMPTED TO HAVE PT STAY AT [facility], AND NO STAFF AVAILABLE [facility] PT DOES NOT MEET INVOLUNTARY INPATIENT PSYCH ADMIT CRITERIA, AND PT DOES NOT WANT TO BE ADMITTED VOLUNTARILY LIZANDRO STATES THAT BOTH SHE AND PT FEEL COMFORTABLE WITH PT GOING HOME, AND ARRANGEMENTS WILL BE MADE FOR PT TO BE SEEN AT CLINIC AT [facility] ON TUESDAY WILL SEND PT HOME VIA [facility]. Impression Impression: Primary Impression: Suicidal ideation Additional Impressions: Suicide gesture Depression MULTIPLE ABRASIONS RIGHT FOREARM Disposition: HOME, SELF-CARE Condition: Stable Departure-Patient Inst. Referrals: [facility] (PCP/Family) Primary Care Physician Patient Instructions: ALCOHOL AND SUBSTANCE ABUSE, Depression, Adult (DC), SUICIDE CONTRACT, Suicide Prevention EMMIE BRIZUELA DO Jul 15, 2017 23:49
[2017-07-16] MEDS ORDERED: MUPIROCIN 2% OINT 22 GM (BACTROBAN) TUBE ONE (01:22)
[2017-07-16 01:52] VITALS: BP 133/82
[2017-07-16] MEDS ORDERED: MUPIROCIN 2% OINT 22 GM (BACTROBAN) TUBE TOP SCH (09:00)
== END 2017-07-16 01:51 | disposition home or self-care (01) ==
LOC: EDUNIT# 21:32 → ER 21:33
DX: S50.811A Abrasion of right forearm, initial encounter (principal); R45.851 Suicidal ideations; F32.9 Major depressive disorder, single episode, unspecified; F11.10 Opioid abuse, uncomplicated; Z91.5 Personal history of self-harm; Z87.59 Personal history of other complications of pregnancy, childbirth and the puerperium; Z98.51 Tubal ligation status; W26.9XXA Contact with unspecified sharp object(s), initial encounter
CPT/HCPCS: 36415; 80053; 80306; 80320; 80329; 81000; 84443; 84703; 85025; 93005